=== PATIENT | female | born 2005 | race Caucasian/White ===

== ENCOUNTER 2024-01-25 10:49 | Day surgery (SDC) | payer OTHER, SELFPAY ==
[2024-01-25] VITALS (11 sets, daily range): BP systolic 96–122; BP diastolic 51–80; PULSE 64–85; RESP 16; TEMP 36.3–37.2; O2SAT 96–100; BMI 23.8
[2024-01-25 11:29] LABS: Internal QC Validated? YES +Cl - CLEAR BKGD; Pregnancy, Urine Negative Negative
[2024-01-25] MEDS: Cefazolin 2 GM in Syringe IV (12:57)
[2024-01-25] MEDS: Phenazopyridine 95 MG Tablet 190 MG PO (14:43)
[2024-01-25] MEDS: Acetaminophen 325 MG Tablet PO (16:14)
[2024-01-25] MEDS: oxyCODONE 5 MG Tablet PO (16:14)
== END 2024-01-25 16:47 | disposition home or self-care (01) ==
LOC: SDC 10:55 → AC 10:59
PROVIDERS: PCP Pediatrics; Referring Provider Urology; Visit Provider Urology
PROC: 3E0K8GC Introduction of Other Therapeutic Substance into Genitourinary Tract, Via Natural or Artificial Opening Endoscopic (ICD-10-PCS; CPT 52287; principal; 2024-01-25 12:20)
DX: N36.42 Intrinsic sphincter deficiency (ISD) (principal); N39.3 Stress incontinence (female) (male); J45.909 Unspecified asthma, uncomplicated; Z79.899 Other long term (current) drug therapy; K21.9 Gastro-esophageal reflux disease without esophagitis
CPT/HCPCS: 51715; 00910; 81025; A4216; J2405; J3490